=== PATIENT | male | born 1950 | race African-American/Black ===

== ENCOUNTER 2017-08-21 08:05 | Emergency (ER) | payer MEDICARE, MEDICAID ==
[~2017-08-21] VITALS: Ht 175.3 cm; Wt 75.0 kg
[2017-08-21] MEDS ORDERED: RISP0.2514 PO (08:14)
[2017-08-21] MEDS ORDERED: AMLO2.5T45 PO (08:14)
[2017-08-21] MEDS ORDERED: TRIA1TAB94 PO (08:14)
[2017-08-21] MEDS ORDERED: CLON0.5T4 PO (08:14)
[2017-08-21] MEDS ORDERED: BENZ2TAB7 PO (08:14)
[2017-08-21] MEDS ORDERED: CLOP75TA33 PO (08:14)
[2017-08-21] MEDS ORDERED: FAMOTIDINE 20MG/2ML VIAL IV STA (08:22)
[2017-08-21] MEDS ORDERED: SODIUM CHLORIDE 0.9% 1,000 ML IV ONE (08:42)
[2017-08-21 08:43] LABS: BASOPHILS % 1.1 % (0.0-2.0); EOSINOPHILS % 2.1 % (0.0-5.0); HEMATOCRIT. 41.5 % (42.0-52.0); HEMOGLOBIN. 14.1 g/dL (14.0-18.0); LYMPHOCYTES % 26.4 % (20.0-50.0); MEAN CORPUSCULAR HEMOGLOBIN 30.1 pg (28.0-32.0); MEAN CORPUSCULAR VOLUME 88.5 fL (80.0-94.0); MEAN PLATELET VOLUME 8.9 fl (7.4-10.4); MONOCYTES % 8.5 % (2.0-8.0); NEUTROPHILS % 61.9 % (40.0-76.0); PLATELET 268 x1000/uL (130-400); RED BLOOD CELL COUNT 4.69 mill/uL (4.7-6.1); RED CELL DISTRIBUTION WIDTH 12.5 % (11.6-14.6)
[2017-08-21 08:49] LABS: INR 1.1; PARTIAL THROMBOPLASTIN TIME 26.9 sec (23.4-31.0); PROTHROMBIN TIME 11.4 sec (9.4-11.6)
[2017-08-21 09:03] LABS: CHLORIDE 102 mEq/L (98-107); TROPONIN I < 0.02 ng/mL (0.00-0.04)
[2017-08-21 10:05] LABS: CLARITY URINE CLEAR (CLEAR); COLOR URINE YELLOW (YELLOW); KETONES URINE NEGATIVE (NEGATIVE); LEUKOCYTE ESTERASE URINE NEGATIVE (NEGATIVE); NITRITE URINE NEGATIVE (NEGATIVE); OCCULT BLOOD URINE NEGATIVE (NEGATIVE); PH URINE 7.5 (4.5-8.0); PROTEIN URINE NEGATIVE (NEGATIVE); SPECIFIC GRAVITY URINE 1.012 (1.005-1.030); UROBILINOGEN URINE 0.2 E.U./dL (0.2-1.0)
[2017-08-21 10:33] VITALS: BP 133/79
== END 2017-08-21 10:34 | disposition home or self-care (01) ==
LOC: ER 08:30
DX: K59.00 Constipation, unspecified (principal); I10 Essential (primary) hypertension; F20.9 Schizophrenia, unspecified; K21.9 Gastro-esophageal reflux disease without esophagitis; K56.609 Unspecified intestinal obstruction, unspecified as to partial versus complete obstruction; K76.89 Other specified diseases of liver; K56.41 Fecal impaction; Z86.73 Personal history of transient ischemic attack (TIA), and cerebral infarction without residual deficits
CPT/HCPCS: 36415; 71045; 74176; 80053; 81003; 83690; 84484; 85025; 85610; 85730; 87086; 93005; 96374; 99285; J3490; J7030